=== PATIENT | male | born 1955 | race Caucasian/White ===

== ENCOUNTER 2023-04-22 19:36 | Inpatient (IN) | payer OTHER ==
[2023-04-22] MEDS ORDERED: NOREPINEPHRINE 8 MG/250 ML-D5W 250 ML ONE (19:40)
[2023-04-22 19:56] LABS: #Eosinphils 0.1 thou/uL (0.0-0.7); #Monocytes 0.7 thou/uL (0.11-0.59); #Neutrophils 8.2 thou/uL (1.40-6.50); %Basophils 0.4 % (0.0-1.0); %Eosinophils 1.4 % (0.0-10.0); %Lymphocytes 4.1 % (21.0-51.0); %Monocytes 7.5 % (0.0-10.0); Hematocrit 30.3 % (42.0-52.0); Mean Corpuscular Hemoglobin 29.8 pg (27.0-31.0); Mean Corpuscular Volume 90.2 fl (78.0-98.0); Mean Platelet Volume 9.1 fL (7.4-10.4); Platelet Count 145 10x3/uL (130-400); RBC Distribution Width 13.9 % (11.5-14.5); Red Blood Cell (RBC) Count 3.36 mill/uL (4.70-6.10); White Blood Cell (WBC) Count 9.5 10x3/uL (4.8-10.8)
[2023-04-22] MEDS ORDERED: Fentanyl CADD 100 ML IV SCH (20:00)
[2023-04-22 20:01] LABS: Analyzer IN Cardio ER; Base Excess (BEa) 1.1 mEq/L (-2.0 to +3.0); CO2 Tension 37.2 mmHg (35.0-45.0); Calcium, Ionized (arterial) 1.08 mmol/L (1.12-1.30); Carboxyhemoglobin (COHb) 0.3 gm% (0.0-3.0); Hematocrit-ABG 31 % (42.0-52.0); Hemoglobin (Hb) 10.5 g/dL (14.0-18.0); O2 Tension (PaO2), arterial 139.8 mmHg (> 80.0); Potassium - ABG Lab 3.71 mmol/L (3.70-5.30); pH, Arterial 7.446 (7.35-7.45)
[2023-04-22 20:02] LABS: Puncture Site RRA
[2023-04-22 20:09] LABS: INR-International Normal Ratio 1.5; PTT 33.8 sec (22.9-36.1); Prothrombin Time 18.1 sec (12.0-14.7)
[2023-04-22 20:18] LABS: Bacteria/HPF 3+ HPF (None Seen); Bilirubin Negative (Negative); Blood, Urine 2+ (Negative); CAUTI Indications for Culture Alt mental st,lethar; Clarity Extra Turbid (Clear); Glucose, Urine (Dipstick) 500 mg/dL (Negative); Ketone, Urine Negative (Negative); Leukocyte 500 Leu/uL (Negative); Nitrite Negative (Negative); Protein, Urine (Dipstick) 100 mg/dL (Neg-Trace); Specific Gravity, Urine 1.015 (1.002-1.036); Squamous Epithelial None Seen HPF (0-3); Transitional Epithelial 0-3 HPF (None Seen); Urobilinogen Normal mg/dL (Less than 2); WBC/HPF Greater than 50 HPF (0-3); Yeast-Budding 2+ HPF (None Seen); pH, Urine 5.5 (5.0-9.0)
[2023-04-22 20:20] LABS: ALT (SGPT) 17 U/L (8-55); AST (SGOT) 14 U/L (5-34); Albumin 3.4 g/dL (3.4-4.8); Alkaline Phosphatase 135 U/L (40-110); Anion Gap 15 mmol/L (10-20); BUN (Urea Nitrogen) 21 mg/dL (8.4-25.7); Bilirubin, Total 0.5 mg/dL (0.2-1.2); Calc. Creatinine Clearance 0 mL/min (70-130); Carbon Dioxide 23 mmol/L (23-31); Chloride 106 mmol/L (98-107); Estimated GFR 22; Globulin 2.6 g/dL (2.4-3.5); Glucose 334 mg/dL (80-115); Potassium 3.8 mmol/L (3.5-5.1); Sodium 140 mmol/L (136-145)
[2023-04-22 20:20] LABS: Urine Culture Reflex Yes Yes
[2023-04-22] MEDS ORDERED: Cefepime 2 GM VIAL ONE (20:22)
[2023-04-22] MEDS ORDERED: Sodium Chloride 0.9% 100 ML ONE (20:25)
[2023-04-22 20:26] LABS: Acetaminophen 12 mcg/mL (10.0-30.0); Alcohol Less than 10.0 mg/dL (Less than 10); Lipase 47 U/L (8-78); Salicylate Less than 8.0 mg/dL (15.0-30.0)
[2023-04-22 20:30] LABS: Troponin I Less than 0.010 ng/mL (< 0.028)
[2023-04-22] MEDS ORDERED: Vancomycin (BATCH) 2 GM/500 ML BAG ONE (21:46)
[2023-04-22] MEDS ORDERED: Vancomycin (BATCH) 2 GM in Premix 1 BAG IVPB SCH (22:00)
[2023-04-22] MEDS ORDERED: Ondansetron PF 4 MG/2 ML Vial IVP PRN (22:10)
[2023-04-22] MEDS ORDERED: Ondansetron ODT 4 MG TAB PO PRN (22:10)
[2023-04-22] MEDS ORDERED: Glucagon 1 MG/ML KIT IM PRN (22:14)
[2023-04-22] MEDS ORDERED: Dextrose 50% Abboject 50 ML SYRINGE SLOW IVP PRN (22:14)
[2023-04-22] MEDS ORDERED: HumaLOG 300 UNITS/3 ML VIAL SC PRN (22:14)
[2023-04-22] MEDS ORDERED: Dextrose 5% in Water 1,000 ML IV PRN (22:14)
[2023-04-22] MEDS ORDERED: NOREPINEPHRINE 8 MG/250 ML-D5W 250 ML IVPB SCH (22:15)
[2023-04-22] MEDS ORDERED: Ventilator Sedation Protocol 1 EACH FS SCH (23:30)
[2023-04-22] MEDS ORDERED: Propofol 1,000 MG/100 ML VIAL IV PRN (23:45)
[2023-04-22] MEDS ORDERED: Morphine 2 MG/ML VIAL SLOW IVP PRN (23:45)
[2023-04-22] MEDS ORDERED: Propofol BOLUS 1,000 MG/100 ML VIAL IV PRN (23:45)
[2023-04-22] MEDS ORDERED: DISCONTINUE PREVIOUS NARCOTIC PAIN MEDICATIONS AND BENZODIAZEPINES FS SCH (23:45)
[2023-04-22] MEDS ORDERED: Lorazepam 2 MG/ML VIAL SLOW IVP PRN (23:45)
[2023-04-22] MEDS ORDERED: Fentanyl BOLUS 250 ML IVPB PRN (23:45)
[2023-04-22] MEDS ORDERED: Vancomycin Diaylsis Sliding Scale (Wt 71-99) FS SCH (23:45)
[2023-04-23 04:45] LABS: #Eosinphils 0.1 thou/uL (0.0-0.7); #Monocytes 0.7 thou/uL (0.11-0.59); %Basophils 0.3 % (0.0-1.0); %Eosinophils 0.8 % (0.0-10.0); %Neutrophils 84.4 % (42.0-75.0); Hematocrit 30.9 % (42.0-52.0); Hemoglobin 9.8 g/dL (14.0-18.0); Mean Corpuscular HGB CONC 31.7 g/dL (32.0-36.0); Mean Corpuscular Hemoglobin 29.6 pg (27.0-31.0); Mean Platelet Volume 9.7 fL (7.4-10.4); Platelet Count 158 10x3/uL (130-400); RBC Distribution Width 14.1 % (11.5-14.5); Red Blood Cell (RBC) Count 3.31 mill/uL (4.70-6.10); White Blood Cell (WBC) Count 13.1 10x3/uL (4.8-10.8)
[2023-04-23 04:47] LABS: Mean Corpuscular Volume 93.4 fl (78.0-98.0)
[2023-04-23 05:17] LABS: ALT (SGPT) 17 U/L (8-55); AST (SGOT) 13 U/L (5-34); Albumin 3.3 g/dL (3.4-4.8); Alkaline Phosphatase 123 U/L (40-110); Anion Gap 14 mmol/L (10-20); BUN (Urea Nitrogen) 24 mg/dL (8.4-25.7); Bilirubin, Total 0.5 mg/dL (0.2-1.2); Calc. Creatinine Clearance 22 mL/min (70-130); Calcium 8.4 mg/dL (7.8-10.44); Carbon Dioxide 24 mmol/L (23-31); Chloride 108 mmol/L (98-107); Estimated GFR 19; Globulin 2.9 g/dL (2.4-3.5); Glucose 240 mg/dL (80-115); Magnesium 1.8 mg/dL (1.6-2.6); Potassium 3.8 mmol/L (3.5-5.1); Protein, Total 6.2 g/dL (5.8-8.1); Sodium 142 mmol/L (136-145)
[2023-04-23 05:24] LABS: Critical Call Chemistry ICU.RH3 @0523; Phosphorus 1.4 mg/dL (2.3-4.7)
[2023-04-23] MEDS ORDERED: Magnesium 2 GM/50 ML(in water) 2 GM in Premix 1 BAG IVPB SCH ×2 (05:45→10:00)
[2023-04-23] MEDS ORDERED: Sodium Phosphate 30 MMOL in Sodium Chloride 0.9% 250 ML 250 ML IVPB SCH (06:00)
[2023-04-23] MEDS: Sodium Chloride 0.9% 1,000 ML IV SCH ×2 (07:00→17:58)
[2023-04-23] MEDS ORDERED: Heparin 5,000 UNITS/ML VIAL SC SCH (09:00)
[2023-04-23] MEDS ORDERED: Famotidine/PF 20 mg/2ml Vial SLOW IVP SCH (09:00)
[2023-04-23] MEDS ORDERED: Vancomycin 1 GM in Premix 1 BAG IVPB SCH (09:00)
[2023-04-23] MEDS ORDERED: Acetaminophen 325 MG TAB PO PRN (09:28)
[2023-04-23] MEDS ORDERED: Acetaminophen 650 MG Suppository PR PRN (09:28)
[2023-04-23] MEDS ORDERED: Lactated Ringer's 500 ML IV SCH (09:30)
[2023-04-23] MEDS ORDERED: Pantoprazole 40 MG VIAL IVP SCH (09:30)
[2023-04-23] MEDS: HumaLOG 300 UNITS/3 ML VIAL SC PRN ×2 (12:12→17:58)
[2023-04-23] MEDS: Fluconazole In NaCl,Iso-Osm 100 MG in Admixture Fee 2 EACH IVPB SCH (14:51)
[2023-04-23] MEDS: Vancomycin HCl 125 MG Capsule PO SCH ×2 (14:52→21:19)
[2023-04-23 15:02] LABS: Hematocrit 31.2 % (42.0-52.0)
[2023-04-23] MEDS: Amiodarone 200 MG TAB PO SCH (21:17)
[2023-04-23] MEDS: Tamsulosin HCl 0.4 MG CAP PO SCH (21:19)
[2023-04-23] MEDS: Cefepime 1 GM in Sodium Chloride 0.9% 100 ML IVPB SCH (21:20)
[2023-04-23] MEDS: Pantoprazole 40 MG VIAL IVP SCH (21:20)
[2023-04-23] MEDS: Insulin Glargine 30 UNITS/0.3 ML VIAL SC SCH (21:20)
[2023-04-23] MEDS: Atorvastatin Calcium 40 MG TAB PO SCH (21:21)
[2023-04-24] MEDS: Vancomycin HCl 125 MG Capsule PO SCH (03:29)
[2023-04-24 05:07] LABS: #Basophils 0.1 thou/uL (0.0-0.2); #Eosinphils 0.4 thou/uL (0.0-0.7); #Monocytes 0.8 thou/uL (0.11-0.59); #Neutrophils 7.8 thou/uL (1.40-6.50); %Basophils 0.5 % (0.0-1.0); %Eosinophils 4.3 % (0.0-10.0); %Monocytes 7.5 % (0.0-10.0); %Neutrophils 76.1 % (42.0-75.0); Hematocrit 29.4 % (42.0-52.0); Hemoglobin 9.1 g/dL (14.0-18.0); Mean Corpuscular Hemoglobin 29.3 pg (27.0-31.0); Mean Corpuscular Volume 94.5 fl (78.0-98.0); Mean Platelet Volume 9.4 fL (7.4-10.4); Platelet Count 150 10x3/uL (130-400); RBC Distribution Width 14.6 % (11.5-14.5); Red Blood Cell (RBC) Count 3.11 mill/uL (4.70-6.10); White Blood Cell (WBC) Count 10.2 10x3/uL (4.8-10.8)
[2023-04-24 05:18] LABS: Hemoglobin A1c 8.9 % (4.0-6.0)
[2023-04-24 05:32] LABS: ALT (SGPT) 16 U/L (8-55); AST (SGOT) 13 U/L (5-34); Albumin 3.1 g/dL (3.4-4.8); Alkaline Phosphatase 94 U/L (40-110); Anion Gap 13 mmol/L (10-20); BUN (Urea Nitrogen) 26 mg/dL (8.4-25.7); Bilirubin, Total 0.4 mg/dL (0.2-1.2); Calc. Creatinine Clearance 21 mL/min (70-130); Calcium 8.2 mg/dL (7.8-10.44); Carbon Dioxide 22 mmol/L (23-31); Chloride 112 mmol/L (98-107); Estimated GFR 18; Globulin 2.7 g/dL (2.4-3.5); Glucose 133 mg/dL (80-115); Magnesium 1.9 mg/dL (1.6-2.6); Phosphorus 4.6 mg/dL (2.3-4.7); Potassium 3.9 mmol/L (3.5-5.1); Protein, Total 5.8 g/dL (5.8-8.1); Sodium 143 mmol/L (136-145)
[2023-04-24 08:01] LABS: Vancomycin, Random 19.9 ug/mL (See Comment)
[2023-04-24] MEDS: Sodium Chloride 0.9% 1,000 ML IV SCH (08:10)
[2023-04-24 08:19] LABS: Hep B Core Total Ab Non-Reactive (NonReactive); Hep B Core Total Index 0.13 S/CO (0-0.79)
[2023-04-24] MEDS: Amiodarone 200 MG TAB PO SCH ×2 (08:30→15:36)
[2023-04-24 08:36] LABS: HBSAg Index 0.23 S/CO (0-0.99); Hep B Surf Ag Non-Reactive S/CO (NonReactive)
[2023-04-24 08:37] LABS: Hep C IgG Ab Non-Reactive S/CO (NonReactive); Hep C Index 0.11 S/CO (0-0.79)
[2023-04-24 08:39] LABS: HBSAB Concentration 838.55 mIU/mL; Hep B Surf AB Reactive (NonReactive)
[2023-04-24 09:23] VITALS: BMI 26.0
[2023-04-24] MEDS: Insulin Glargine 30 UNITS/0.3 ML VIAL SC SCH ×2 (10:40→20:32)
[2023-04-24] MEDS: Pantoprazole 40 MG VIAL IVP SCH ×2 (10:40→20:31)
[2023-04-24] MEDS ORDERED: Phenol 177 ML BOT PO PRN (11:17)
[2023-04-24] MEDS ORDERED: DC Sedation Protocol FS ONE (15:07)
[2023-04-24] MEDS: Fluconazole In NaCl,Iso-Osm 100 MG in Admixture Fee 2 EACH IVPB SCH (15:43)
[2023-04-24] MEDS ORDERED: Vancomycin 250 MG, Admixture Fee 1 EACH in Sodium Chloride 0.9% 100 ML IVPB SCH (17:00)
[2023-04-24] MEDS ORDERED: Lidocaine 1% (PF) 30 ML VIAL ONE (19:43)
[2023-04-24] MEDS: Cefepime 1 GM in Sodium Chloride 0.9% 100 ML IVPB SCH (20:30)
[2023-04-24] MEDS: Tamsulosin HCl 0.4 MG CAP PO SCH (20:31)
[2023-04-24] MEDS: Atorvastatin Calcium 40 MG TAB PO SCH (20:32)
[2023-04-24] MEDS: Apixaban 5 MG TAB PO SCH (20:32)
[2023-04-25] MEDS: Amiodarone 200 MG TAB PO SCH ×2 (05:09→17:04)
[2023-04-25 05:36] LABS: Hematocrit 28.8 % (42.0-52.0); Mean Corpuscular HGB CONC 31.3 g/dL (32.0-36.0); Mean Corpuscular Hemoglobin 29.7 pg (27.0-31.0); Mean Platelet Volume 9.4 fL (7.4-10.4); Platelet Count 150 10x3/uL (130-400); RBC Distribution Width 14.3 % (11.5-14.5); Red Blood Cell (RBC) Count 3.03 mill/uL (4.70-6.10); White Blood Cell (WBC) Count 7.6 10x3/uL (4.8-10.8)
[2023-04-25] MEDS: HumaLOG 300 UNITS/3 ML VIAL SC PRN (05:53)
[2023-04-25 05:59] LABS: Anion Gap 10 mmol/L (10-20); BUN (Urea Nitrogen) 23 mg/dL (8.4-25.7); Calc. Creatinine Clearance 26 mL/min (70-130); Calcium 8.1 mg/dL (7.8-10.44); Carbon Dioxide 26 mmol/L (23-31); Chloride 108 mmol/L (98-107); Estimated GFR 23; Glucose 167 mg/dL (80-115); Potassium 3.9 mmol/L (3.5-5.1); Sodium 140 mmol/L (136-145)
[2023-04-25] MEDS: Apixaban 5 MG TAB PO SCH ×2 (09:40→22:05)
[2023-04-25] MEDS: Insulin Glargine 30 UNITS/0.3 ML VIAL SC SCH ×2 (09:40→22:04)
[2023-04-25] MEDS: Pantoprazole 40 MG VIAL IVP SCH ×2 (09:41→22:05)
[2023-04-25] MEDS: Vancomycin HCl 125 MG Capsule PO SCH (13:01)
[2023-04-25] MEDS: Fluconazole In NaCl,Iso-Osm 100 MG in Admixture Fee 2 EACH IVPB SCH (17:04)
[2023-04-25] MEDS: Cefepime 1 GM in Sodium Chloride 0.9% 100 ML IVPB SCH (22:03)
[2023-04-25] MEDS: Atorvastatin Calcium 40 MG TAB PO SCH (22:04)
[2023-04-25] MEDS: Tamsulosin HCl 0.4 MG CAP PO SCH (22:05)
[2023-04-26] MEDS: Amiodarone 200 MG TAB PO SCH ×2 (05:16→17:27)
[2023-04-26 05:55] LABS: Anion Gap 9 mmol/L (10-20); BUN (Urea Nitrogen) 28 mg/dL (8.4-25.7); Calc. Creatinine Clearance 22 mL/min (70-130); Calcium 8.6 mg/dL (7.8-10.44); Carbon Dioxide 27 mmol/L (23-31); Chloride 108 mmol/L (98-107); Estimated GFR 19; Glucose 116 mg/dL (80-115); Potassium 3.8 mmol/L (3.5-5.1); Sodium 140 mmol/L (136-145)
[2023-04-26 07:45] LABS: #Basophils 0.1 thou/uL (0.0-0.2); #Eosinphils 0.3 thou/uL (0.0-0.7); #Monocytes 0.5 thou/uL (0.11-0.59); #Neutrophils 4.7 thou/uL (1.40-6.50); %Basophils 0.8 % (0.0-1.0); %Monocytes 7.8 % (0.0-10.0); %Neutrophils 71.6 % (42.0-75.0); Hematocrit 29.7 % (42.0-52.0); Hemoglobin 9.2 g/dL (14.0-18.0); Mean Corpuscular Hemoglobin 28.9 pg (27.0-31.0); Mean Corpuscular Volume 93.4 fl (78.0-98.0); Mean Platelet Volume 9.4 fL (7.4-10.4); Platelet Count 171 10x3/uL (130-400); RBC Distribution Width 14.2 % (11.5-14.5); Red Blood Cell (RBC) Count 3.18 mill/uL (4.70-6.10); White Blood Cell (WBC) Count 6.6 10x3/uL (4.8-10.8)
[2023-04-26] MEDS ORDERED: Heparin 10,000 UNITS/ 10 ML VIAL ONE (08:45)
[2023-04-26] MEDS: Apixaban 5 MG TAB PO SCH ×2 (08:46→20:45)
[2023-04-26] MEDS: Insulin Glargine 30 UNITS/0.3 ML VIAL SC SCH ×2 (08:47→20:45)
[2023-04-26] MEDS ORDERED: Pantoprazole 40 MG VIAL IVP SCH (09:00)
[2023-04-26] MEDS: Fluconazole In NaCl,Iso-Osm 100 MG in Admixture Fee 2 EACH IVPB SCH (16:39)
[2023-04-26] MEDS ORDERED: CefTAZidime\\FORTAZ 1 GM in Sodium Chloride 0.9% 100 ML IVPB SCH (18:00)
[2023-04-26] MEDS ORDERED: ADMIXTURE FEE IVPB SCH (18:00)
[2023-04-26] MEDS ORDERED: SODIUM CHLORIDE IVPB SCH (18:00)
[2023-04-26] MEDS ORDERED: CEFTAZIDIME FORTAZ IVPB SCH (18:00)
[2023-04-26] MEDS: Atorvastatin Calcium 40 MG TAB PO SCH (20:44)
[2023-04-26] MEDS: Tamsulosin HCl 0.4 MG CAP PO SCH (20:45)
[2023-04-27] MEDS: Amiodarone 200 MG TAB PO SCH ×2 (06:15→18:03)
[2023-04-27] MEDS: Insulin Glargine 30 UNITS/0.3 ML VIAL SC SCH ×2 (08:40→20:51)
[2023-04-27] MEDS: Apixaban 5 MG TAB PO SCH ×2 (08:40→20:51)
[2023-04-27] MEDS ORDERED: EPOETIN ALFA-EPBX (ESRD) 10,000 UNITS/ML VIAL SC SCH (09:00)
[2023-04-27] MEDS: Fluconazole In NaCl,Iso-Osm 100 MG in Admixture Fee 2 EACH IVPB SCH (15:19)
[2023-04-27] MEDS: Tamsulosin HCl 0.4 MG CAP PO SCH (20:51)
[2023-04-27] MEDS: Atorvastatin Calcium 40 MG TAB PO SCH (20:51)
[2023-04-27] MEDS: HumaLOG 300 UNITS/3 ML VIAL SC PRN (21:00)
[2023-04-28] MEDS: Amiodarone 200 MG TAB PO SCH (05:59)
[2023-04-28] MEDS ORDERED: Ondansetron PF 4 MG/2 ML Vial IM SCH (09:30)
[2023-04-28] MEDS: Apixaban 5 MG TAB PO SCH (10:05)
[2023-04-28] MEDS: Insulin Glargine 30 UNITS/0.3 ML VIAL SC SCH (10:06)
[2023-04-28] MEDS: Amlodipine 5 MG TAB PO SCH ×2 (13:10→13:36)
[2023-04-28] MEDS: Fluconazole In NaCl,Iso-Osm 100 MG in Admixture Fee 2 EACH IVPB SCH (15:36)
[2023-04-28 15:43] VITALS: BP 154/80; TEMP 98.3
[2023-04-29] MEDS ORDERED: Amlodipine 5 MG TAB PO SCH (09:00)
== END 2023-04-28 18:01 | disposition home or self-care (01) | DRG 314 ==
LOC: ERS 19:36 → SUATTDRO 19:36 → CCU 20:57 → 2SE 04-24 17:00
PROVIDERS: ADMIT Family Medicine; ATTEND Internal Medicine
PROC: 4A033R1 Measurement of Arterial Saturation, Peripheral, Percutaneous Approach (ICD-10-PCS; principal; 2023-04-22)
PROC: 3E033XZ Introduction of Vasopressor into Peripheral Vein, Percutaneous Approach (ICD-10-PCS; 2023-04-22)
PROC: 5A1935Z Respiratory Ventilation, Less than 24 Consecutive Hours (ICD-10-PCS; 2023-04-22)
PROC: 0D9670Z Drainage of Stomach with Drainage Device, Via Natural or Artificial Opening (ICD-10-PCS; 2023-04-22)
PROC: 3E0G76Z Introduction of Nutritional Substance into Upper GI, Via Natural or Artificial Opening (ICD-10-PCS; 2023-04-22)
PROC: 0TPB70Z Removal of Drainage Device from Bladder, Via Natural or Artificial Opening (ICD-10-PCS; 2023-04-22)
PROC: 5A09357 Assistance with Respiratory Ventilation, Less than 24 Consecutive Hours, Continuous Positive Airway Pressure (ICD-10-PCS; 2023-04-23)
DX: T80.211A Bloodstream infection due to central venous catheter, initial encounter (principal); A41.52 Sepsis due to Pseudomonas; G93.41 Metabolic encephalopathy; J96.01 Acute respiratory failure with hypoxia; N18.6 End stage renal disease; R65.21 Severe sepsis with septic shock; N39.0 Urinary tract infection, site not specified; I12.0 Hypertensive chronic kidney disease with stage 5 chronic kidney disease or end stage renal disease; E11.22 Type 2 diabetes mellitus with diabetic chronic kidney disease; D63.1 Anemia in chronic kidney disease; I48.0 Paroxysmal atrial fibrillation; E83.39 Other disorders of phosphorus metabolism; N40.0 Benign prostatic hyperplasia without lower urinary tract symptoms; I25.10 Atherosclerotic heart disease of native coronary artery without angina pectoris; E83.42 Hypomagnesemia; Z79.899 Other long term (current) drug therapy; Z98.890 Other specified postprocedural states; Z95.1 Presence of aortocoronary bypass graft; Z99.2 Dependence on renal dialysis; Z79.01 Long term (current) use of anticoagulants
CPT/HCPCS: 36415; 36416; 36556; 36600; 51702; 70450; 71045; 80048; 80053; 80202; 80307; 81001; 82140; 82805; 83036; 83605; 83690; 83735; 84100; 84145; 84484; 85025; 85027; 85610; 85730; 86704; 87040; 87071; 87077; 87086; 87149; 87186; 90935; 93005; 93306; 94002; 94003; 94660; 94760; 96365; 96366; 96375; C9113; G0257; J0692; J0713; J1450; J1644; J1815; J2001; J2405; J3010; J3370; J3475; J3490; J7050; Q5105